=== PATIENT | female | born 1965 | race Caucasian/White ===

== ENCOUNTER 2016-06-19 00:30 | Inpatient (IN) | payer OTHER ==
[2016-06-19] VITALS (9 sets, daily range): BP systolic 120–136; BP diastolic 71–86; PULSE 69–88; RESP 15–19; TEMP 98.4; Ht 167.6 cm; Wt 68.5 kg
[~2016-06-19] VITALS: Ht 167.6 cm; Wt 68.5 kg
[~2016-06-19 00:30] MED LIST: ALBU8.5H3 INH; CALC1TAB79 PO; ERGO500014 PO; ETAN50PE SQ; FOLI-49 PO; HYDR-906 PO; HYDR200T5 PO; IBUP-1542 PO; IBUP800T25 PO; MET25 PO; OMEP20CA16 PO; PRED1TAB2 PO; SULF500T45 PO
[2016-06-19] MEDS ORDERED: ASPIRIN 325 MG TAB PO ONE (01:30)
[2016-06-19 01:38] LABS: ADD SCAN DIFF NO
[2016-06-19 01:39] LABS: BASOPHIL # 0.1 10^3/ul (0.0-0.1); BASOPHILS % 1.1 % (0.0-2.0); EOSINOPHILS # 0.6 10^3/ul (0.0-0.5); EOSINOPHILS % 6.4 % (0.0-7.0); HEMATOCRIT 35.2 % (37.0-47.0); HEMOGLOBIN 11.4 g/dl (12.0-16.0); LYMPHOCYTES # 3.7 10^3/ul (0.8-2.9); LYMPHOCYTES % 42.1 % (15.0-51.0); MEAN CORPUSCULAR HEMOGLOBIN 27.9 pg (29.0-33.0); MEAN CORPUSCULAR HGB CONC 32.4 g/dl (32.0-37.0); MEAN CORPUSCULAR VOLUME 86.3 fl (82.0-101.0); MEAN PLATELET VOLUME 10.3 fl (7.4-10.4); MONOCYTE # 0.8 10^3/ul (0.3-0.9); MONOCYTES % 9.3 % (0.0-11.0); NEUTROPHIL # 3.6 10^3/ul (1.6-7.5); NEUTROPHILS % 40.8 % (39.0-77.0); PLATELET COUNT 257 10^3/UL (140-415); RED BLOOD COUNT 4.08 10^6/ul (4.20-5.40); RED CELL DISTRIBUTION WIDTH 15.7 % (11.5-14.5); WHITE BLOOD COUNT 8.9 10^3/ul (4.8-10.8)
[2016-06-19 01:49] LABS: ALANINE AMINOTRANSFERASE 30 IU/L (13-69); ALBUMIN 4.3 g/dl (3.3-4.9); ALKALINE PHOSPHATASE 90 IU/L (42-121); ANION GAP 12 (8-16); ASPARTATE AMINO TRANSFERASE 27 IU/L (15-46); BLOOD UREA NITROGEN 11 mg/dl (7-20); CALCIUM 9.5 mg/dl (8.4-10.2); CARBON DIOXIDE 25 mmol/L (21-31); CHLORIDE 107 mmol/L (97-110); CREATININE 0.88 mg/dl (0.44-1.00); GLUCOSE 112 mg/dl (70-220); POTASSIUM 3.9 mmol/L (3.5-5.1); SODIUM 140 mmol/L (135-144); TOTAL PROTEIN 8.6 g/dl (6.1-8.1)
[2016-06-19] MEDS ORDERED: OMEG-135 PO (01:57)
[2016-06-19] MEDS ORDERED: FUROSEMIDE 40 MG INJ IV ONE (02:00)
[2016-06-19] MEDS ORDERED: ENALAPRILAT 1.25 MG INJ IV ONE (02:00)
[2016-06-19 02:02] LABS: TROPONIN-I < 0.012 ng/ml (0.00-0.12)
[2016-06-19] MEDS ORDERED: ALBUTEROL 0.5% (NEB) 2.5 MG/0.5 ML AMP INH STA (02:15)
[2016-06-19 02:23] LABS: B-TYPE NATRIURETIC PEPTIDE 279 PG/ML (0-125)
--- NOTE | 2016-06-19 02:23 | ERA ---
ER Documentation Chief Complaint Date/Time DATE: 06/19/16 TIME: 02:16 Chief Complaint chest pain x 2 days on and off HPI 50-year-old woman brought in by family maintenance of pressure-like substernal chest pain intermittent lasting a few minutes 3 days associated with shortness of breath. It seems she had a similar episode last year and a workup was unremarkable including a CTA which was negative for pulmonary embolism. She denies fevers or chills, no calf or leg swelling, no vomiting or diarrhea. ROS All systems reviewed and are negative except as per history of present illness. Medications Home Meds Reported Medications Phillips-3 Fatty Acids/Fish Oil (Fish Oil 1,000 mg Capsule) 1 Each Capsule, 1 EACH PO TID, CAP 06/19/16 Methotrexate* (Methotrexate*) 2.5 Mg Tab, 2.5 MG PO, TAB weekly 01/12/16 Hydroxychloroquine Sulfate* (Plaquenil*) 200 Mg Tab, 200 MG PO DAILY, TAB 01/12/16 Ergocalciferol* (Drisdol* (Vitamin D2)) 50,000 Unit Capsule, 14731 UNIT PO Q7D, CAP twice per week 01/12/16 Folic Acid* (Folic Acid*) 1 Mg Tablet, 1 MG PO DAILY, TAB 01/12/16 Etanercept (Enbrel) 50 Mg/1 Ml Pen.injctr, 50 MG SQ 1-2 times per week 01/12/16 Ibuprofen* (Ibuprofen*) 600 Mg Tablet, 600 MG PO Q6, TAB 01/12/16 Omeprazole* (Omeprazole*) 20 Mg Capsule.dr, 20 MG PO DAILY, #30 CAP 01/12/16 Discontinued Reported Medications Prednisone* (Prednisone*) 1 Mg Tablet, 1 MG PO, TAB 4 tabs daily 01/12/16 Calcium Carbonate/Vitamin D3 (Oysco 500+D Tablet) 1 Each Tablet, 1 EACH PO BID, TAB 01/12/16 Sulfasalazine (Azulfidine) 500 Mg Tab, 1000 MG PO BID, #120 TAB 01/12/16 Discontinued Scripts Albuterol Sulfate* (Proair HFA*) 8.5 Gm Hfa.aer.ad, 2 PUFF INH Q4, #1 INHALER Prov:TALIA SMITH PA-C 01/12/16 Hydrocodone/Acetaminophen ([place] 5-325 Tablet) 1 Each Tablet, 1 TAB PO Q6H Y for PAIN, #20 TAB Prov:KELSIE DUBOSE. DO 10/14/15 Ibuprofen* (Motrin*) 800 Mg Tab, 800 MG PO Q6H Y for PAIN AND OR ELEVATED TEMP, #30 TAB Prov:KELSIE DUBOSE. DO 10/14/15 Allergies Allergies: Coded Allergies: No Known Allergy (Unverified , 06/19/16) PMhx/Soc Gastritis, previous pulmonary effusion and scarring, arthritis History of Surgery: Yes (BILAT KNEE REPLACE) Anesthesia Reaction: No Hx Neurological Disorder: No Hx Respiratory Disorders: No Hx Cardiac Disorders: No Hx Psychiatric Problems: No Hx Miscellaneous Medical Probl: Yes (ARTHRITIS) Hx Alcohol Use: No Hx Substance Use: No Hx Tobacco Use: No Smoking Status: Never smoker FmHx Family History: No diabetes Physical Exam Vitals Vital Signs Date Time Temp Pulse Resp B/P Pulse Ox O2 Delivery O2 Flow Rate FiO2 06/19/16 02:34 70 18 100 21 06/19/16 00:55 98.4 81 20 170/100 100 Room Air 06/19/16 00:36 98.4 56 20 196/92 99 Physical Exam GENERAL: Well-developed, well-nourished, well-hydrated, in no apparent distress , looks nontoxic in appearance HEENT: Moist mucous membranes, pink conjunctiva, no cervical spine tenderness or step-off deformities, no goiter, no jaundice or icterus, extraocular movements intact without pain. No submandibular induration, and no pharyngeal erythema NEURO: Alert and oriented 3, cranial nerves II through XII intact bilaterally, pupils equal round reactive to light, no focal deficits or facial asymmetry, sensation intact distally Strength 5/5 in upper and lower extremities bilaterally CARDIAC: Regular rate and rhythm, no murmurs rubs or gallops LUNGS: Bibasilar crackles, no wheezing or stridor ABDOMEN: Soft nontender, no guarding, no rigidity, no rebound, no psoas sign no obturator sign. Normoactive bowel sounds SKIN: Warm and dry to touch, no abrasions, contusions, or hematomas, no lacerations, no ecchymosis, no target lesions, and without ulcers EXTREMITIES: No clubbing cyanosis or edema, calves are bilaterally symmetrical, no Homans sign, no popliteal cord sign. Distal pulses equal and bilateral PSYCH: Normal affect without agitation or irritability Result Diagram: 06/19/16 0100 06/19/16 0100 Results 24 hrs Laboratory Tests Test 06/19/16 01:00 White Blood Count 8.910^3/ul Red Blood Count 4.0810^6/ul Hemoglobin 11.4g/dl Hematocrit 35.2% Mean Corpuscular Volume 86.3fl Mean Corpuscular Hemoglobin 27.9pg Mean Corpuscular Hemoglobin Concent 32.4g/dl Red Cell Distribution Width 15.7% Platelet Count 38946^3/UL Mean Platelet Volume 10.3fl Neutrophils % 40.8% Lymphocytes % 42.1% Monocytes % 9.3% Eosinophils % 6.4% Basophils % 1.1% Nucleated Red Blood Cells % 0.0/100WBC Neutrophils # 3.610^3/ul Lymphocytes # 3.710^3/ul Monocytes # 0.810^3/ul Eosinophils # 0.610^3/ul Basophils # 0.110^3/ul Nucleated Red Blood Cells # 0.010^3/ul Sodium Level 140mmol/L Potassium Level 3.9mmol/L Chloride Level 107mmol/L Carbon Dioxide Level 25mmol/L Anion Gap 12 Blood Urea Nitrogen 11mg/dl Creatinine 0.88mg/dl Glucose Level 112mg/dl Calcium Level 9.5mg/dl Total Bilirubin 0.0mg/dl Direct Bilirubin 0.00mg/dl Indirect Bilirubin 0.0mg/dl Aspartate Amino Transf (AST/SGOT) 27IU/L Alanine Aminotransferase (ALT/SGPT) 30IU/L Alkaline Phosphatase 90IU/L Troponin I < 0.012ng/ml B-Type Natriuretic Peptide 279PG/ML Total Protein 8.6g/dl Albumin 4.3g/dl Globulin 4.30g/dl Albumin/Globulin Ratio 1.00 Lipase 240U/L Current Medications Medications (Trade) Dose Ordered Sig/Johnna Route PRN Reason Start Time Stop Time Status Last Admin Dose Admin Aspirin (Aspirin) 325 mg ONCE ONCE PO 06/19/16 01:30 06/19/16 01:31 DC 06/19/16 01:39 Enalaprilat (Vasotec Iv) 1.25 mg ONCE ONCE IV 06/19/16 02:00 06/19/16 02:01 DC 06/19/16 01:50 Furosemide (Lasix) 60 mg ONCE ONCE IV 06/19/16 02:00 06/19/16 02:01 DC 06/19/16 01:50 Albuterol (Proventil 0.5% (Neb)) 5 mg ONCE STAT INH 06/19/16 02:15 06/19/16 02:16 DC 06/19/16 02:30 Methylprednisolone Sodium Succinate (Solu-Medrol) 125 mg ONCE ONCE IV 06/19/16 02:30 06/19/16 02:31 DC 06/19/16 02:37 Procedures/MDM IV line was established patient was placed on secretary to board of commissioners rhythm strip revealed a sinus rhythm at about 80 bpm with upright P and T waves and multiple PVCs including atrial-ventricular bigeminy. Patient was afebrile. EKG #1 performed, read by me revealed a normal sinus rhythm at 80 bpm, normal axis, narrow QRS complex, no concerning ST elevations or depressions noted. One view chest x-ray performed, read by me there is atelectatic changes bilaterally and bilateral pulmonary scarring in the left lower lobe infiltrate, no pneumothorax, no end of the diaphragm. Patient was initially hypertensive and given her x-ray findings and complaints of shortness of breath I treated her here with aspirin 325 mg p.o. for cardioprotective measures, enalapril 1.25 mg IV, and furosemide 60 mg IV. She later also received albuterol 5 mg via nebulizer and methylprednisolone 125 mg IV. EKG #2 performed an hour after the first one reveals a normal sinus rhythm at 84 bpm, normal axis, narrow QRS complex, no concerning ST elevations or depressions noted. CBC was unremarkable, electrolytes normal, liver function tests were normal, troponin was normal. BNP low. Patient will be admitted to telemetry setting for continued medical management and possible cardiology pulmonology consultations. Departure Diagnosis: Primary Impression: Chest pain Qualified Code: R07.9 - Chest pain, unspecified type Additional Impressions: Interstitial lung disease Hypertension Qualified Code: I10 - Essential hypertension Condition: LUCILLE Golden MD June 19, 2016 02:23
[2016-06-19] MEDS ORDERED: METHYLPREDNISOLONE 125 MG INJ IV ONE (02:30)
--- NOTE | 2016-06-19 03:15 | RADRPT ---
PROCEDURE: XR Chest. CLINICAL INDICATION: Abdominal pain TECHNIQUE: AP Portable chest. COMPARISON: 01/12/2016 FINDINGS: The cardiomediastinal silhouette is normal. The lungs are clear. The osseous structures are unrema rkable. IMPRESSION: No acute findings. RPTAT: HIKT .Manjit Lemus MD, MD Date Time Electronically viewed and signed by .Manjit Lemus MD, on 06/19/2016 03:15 .T/
[2016-06-19] MEDS ORDERED: ACETAMINOPHEN 325 MG TAB PO PRN (06:00)
[2016-06-19] MEDS ORDERED: NACL 0.9% 3 ML SYG IV SCH (06:00)
[2016-06-19] MEDS ORDERED: PANTOPRAZOLE 40 MG INJ IV SCH (06:00)
[2016-06-19] MEDS ORDERED: ONDANSETRON 4 MG INJ IV PRN (06:00)
--- NOTE | 2016-06-19 06:29 | HP ---
Date/Time of Note Date/Time of Note DATE: 06/19/16 TIME: 06:09 Assessment/Plan VTE Prophylaxis VTE Prophylaxis Intervention: heparin Lines/Catheters IV C[facility]ter Type [facility]from [facility] Peripheral IV Central line still needed: No Urinary Cath still in place: No Assessment/Plan Chief Complaint/Hosp Course This is a 50-year-old female being admitted to telemetry floor for: #1 Chest Pain: Most likely interstitial lung disease exacerbation: Patient is currently afebrile with no consolidation on x-ray afebrile and normal white blood cell count which makes infection less likely. There do appear to be interstitial markings. On previous CT scan there was seemed to be groundglass appearance as well as scarring. I do feel that at this time right now her symptoms are a result of possible interstitial lung disease she may have developed secondary to rheumatoid arthritis iritis and also possibly secondary to Enbrel, methotrexate. At the current time we will treat with DuoNeb's every 4 hours. She already received loading dose of Solu-Medrol in the ED will continue 60 mg daily of prednisone p.o. she has been due for her next dose of methotrexate until Thursday. We will continue her on her Plaquenil right now. Also have pulmonology evaluate the patient for any further recommendations. Her BNP is less than 300 and troponins are negative 1 this appears less likely a cardiac etiology however we will trend the troponin. EKG EKG was sinus rhythm 80 bpm with no overt ST or T-wave abnormalities noted. #2 rheumatoid arthritis: Continue Plaquenil and folic acid. Confirm Enbrel dosage and frequency. Patient is due for her methotrexate on Thursday as part of her once weekly treatment. We will add Toradol IV for pain management. She also is getting prednisone for interstitial lung disease this may also help with the pain. Patient does have an appointment this coming Thursday with her mold burner. I have advised her to discuss with them regarding if some of these pulmonary issues right now could be a result of her rheumatoid arthritis medications. #3 DVT and GI prophylaxis: Heparin subcu, Protonix IV Problems: HPI/ROS Admit Date/Time Admit Date/Time 06/19/2016 Hx of Present Illness 50-year-old woman brought in by family maintenance of pressure-like substernal chest pain intermittent lasting a few minutes 3 days associated with shortness of breath. Patient denies any diaphoresis or lower extremity swelling. She did have a similar episode before in 2016 for which she came into the ED and on CT was found to have patchy groundglass appearance along with some lung scarring. There was no sign of any PE on the study. She does follow with a mold burner in approximately 6 weeks ago switched to methotrexate injections of previous oral formulation. She also is on Enbrel and Plaquenil. She denies any fevers at this time. Allergies: NKDA Medications: See MAR ROS Const: Denies any fevers or chills. Eyes : No pain discharge or redness or change in visual acuity ENT: No pain, sore throat, congestion, congestion, dysphagia or discharge Respiratory: Chest tightness, shortness of breath as stated above in the HPI Cardiovascular: No chest pain, palpitation, PND, or edema GI : no change in appetite, abdominal pain, nausea, vomiting, diarrhea, constipation, or change in the color his stool Genitourinary: No dysuria, hematuria, flank pain , discharge or CVA tenderness Musculoskeletal: Stiffness in her joints at times Skin: No rash, bruising or hives Neuro: No headache, dizziness, syncope, seizure, focal weakness Endocrine: No polyuria, polydipsia, temperature intolerance Psych: No hallucination, depression, anxiety or suicidal ideation PMH/Family/Social Past Medical History Rheumatoid arthritis Past Surgical History Bilateral knee replacement Family History Significant Family History: diabetes (Mom) Social History Alcohol Use: none Smoking Status: Never smoker Drug Use: none Exam/Review of Systems Vital Signs Vitals Vital Signs Date Time Temp Pulse Resp B/P Pulse Ox O2 Delivery O2 Flow Rate FiO2 06/19/16 04:30 98.4 73 20 105/68 99 Room Air 06/19/16 02:34 21 Exam Exam General: Patient is well-developed female in mild distress The patient is alert oriented -3 HEENT: Atraumatic, normocephalic. The pupils are equal, round and reactive. Extraocular motor are intact Neck: Supple with full range of motion. No rigidity or meningismus Chest: Nontender Lungs: Clear to auscultation bilaterally no crackles rales or wheezing Heart: Normal S1-S2, Regular rhythm and rate. No murmur, S3, or S4 Abdomen: Soft , nontender, nondistended , bowel sounds are present. No guarding no rebound tenderness , No masses or organomegaly. No costovertebral temporal angle mass Extremities: Normal to inspection, no edema no cyanosis Neurologic: Normal mental status, speech normal, cranial nerves II through XII are intact, motor and sensory are intact, no focal weakness Additional Comments EKG performed, read by me revealed a normal sinus rhythm at 80 bpm, normal axis, narrow QRS complex, no concerning ST elevations or depressions noted. Chest x-ray Reviewed by me appears to have interstitial lung markings. Previous CT scan of the chest from 2016: Focal calcification within the proximal left anterior descending coronary artery. Mediastinal and hilar lymphadenopathy. Nonspecific diffuse patchy ground glass appearance throughout the lungs. Mild right upper lobe scarring. Subpleural nodular density within the superior segment of the left lower lobe measuring 12 x 8 x 9 mm. Labs Result Diagram: 06/19/169906/19/1699 MARLENA MARINO June 19, 2016 06:24
[2016-06-19] MEDS ORDERED: KETOROLAC 15 MG INJ IV SCH ×2 (07:00→11:00)
[2016-06-19] MEDS ORDERED: ERGOCALCIFEROL 50000 UNIT XX SCH (08:00)
[2016-06-19] MEDS ORDERED: [UNRECOGNIZED DRUG - OTHER] XX SCH (08:00)
[2016-06-19] MEDS: FOLIC ACID 1 MG TAB PO SCH (08:55)
[2016-06-19] MEDS: HEPARIN 5,000 UNIT/0.5 ML VIAL SC SCH ×3 (08:56→22:55)
[2016-06-19] MEDS: HYDROXYCHLOROQUINE 200 MG TAB PO SCH (11:07)
--- NOTE | 2016-06-19 11:25 | CONS ---
Date/Time of Note Date/Time of Note DATE: 06/19/16 TIME: 11:21 Assessment/Plan Assessment/Plan Additional Assessment/Plan Chest x-ray was reviewed from yesterday which is showing mild interstitial prominence more pronounced in overdose. Assessment recommendations; 1. Patient admitted for chest pain which appears to be musculoskeletal in etiology possibly related to underlying rheumatoid arthritis. 2. Interstitial lung disease, unlikely to be methotrexate induced. Continue current treatment. A cardiac workup is recommended Consultation Date/Type/Reason Admit Date/Time 06/19/2016 Date of Consultation: June 19, 2016 Type of Consultation: Pulmonary Reason for Consultation Pulmonary consultation requested for evaluation of chest pain. History presenting illness; Patient is a 50-year-old [place] lady who came into the emergency room yesterday with complaints of sharp- dull chest pain involving the sternum as well as left chest, according to the patient the symptoms are increased by certain movements as well as deep breathing. Patient denies any abdominal pain nausea vomiting fever chills wheezing sputum production. Patient had similar episode several months ago and was evaluated in ER and will discharge home. Over the last couple of hours the pain has improved. Next Past medical history; 1. Patient with history of rheumatoid arthritis, maintained on Plaquenil, steroids and methotrexate. 2. History of bilateral knee depression. 3. No history of any coronary artery disease. Medications; were reviewed. Allergies; are none. Next Family history; patient is he has supportive family no history of any connective tissue diseases in the family. Occupational history; patient has been a housewife. Review of systems; denies any headache, visual changes. Any sore throat. Any angina, wheezing, patient does complain of shortness of breath upon exertion for the last several months. Denies any sputum production. Any hemoptysis. Any weight loss. Any abdominal pain, nausea vomiting, any melena, hematochezia. Denies any edema. Denies any skin changes. General exam; middle-aged woman, awake alert currently in no distress. Social History Alcohol Use: none Smoking Status: Never smoker Drug Use: none Exam/Review of Systems Vital Signs Vitals Vital Signs Date Time Temp Pulse Resp B/P Pulse Ox O2 Delivery O2 Flow Rate FiO2 06/19/16 08:27 69 06/19/16 08:24 98.2 19 124/75 97 06/19/16 06:37 Room Air 06/19/16 02:34 21 Exam HEENT examination; supple neck, no JVD. No lymphadenopathy. Midline trachea. No thyromegaly. Pharynx clear. Patient has good dentition. Pupils are midsize reactive to light. Chest examination; diminished breath on lung bases. Upper lobes are clear to auscultation. S1-S2 audible, no murmurs. Regular rhythm. There is reproducible chest wall tenderness involving the lower sternum as well as left lower rib cage. Abdomen examination; soft, nondistended. Bowel sounds are audible. Extremity exam is; no peripheral edema. Bilateral knee scars are present. No peripheral edema. [employer] examination; no focal deficit. Results Result Diagram: 06/19/16 0100 06/19/16 0100 Results 24 hrs Laboratory Tests Test 06/19/16 01:00 White Blood Count 8.9 Red Blood Count 4.08 L Hemoglobin 11.4 L Hematocrit 35.2 L Mean Corpuscular Volume 86.3 Mean Corpuscular Hemoglobin 27.9 L Mean Corpuscular Hemoglobin Concent 32.4 Red Cell Distribution Width 15.7 H Platelet Count 257 Mean Platelet Volume 10.3 Neutrophils % 40.8 Lymphocytes % 42.1 Monocytes % 9.3 Eosinophils % 6.4 Basophils % 1.1 Nucleated Red Blood Cells % 0.0 Neutrophils # 3.6 Lymphocytes # 3.7 H Monocytes # 0.8 Eosinophils # 0.6 H Basophils # 0.1 Nucleated Red Blood Cells # 0.0 Sodium Level 140 Potassium Level 3.9 Chloride Level 107 Carbon Dioxide Level 25 Anion Gap 12 Blood Urea Nitrogen 11 Creatinine 0.88 Glucose Level 112 Calcium Level 9.5 Total Bilirubin 0.0 L Direct Bilirubin 0.00 Indirect Bilirubin 0.0 Aspartate Amino Transf (AST/SGOT) 27 Alanine Aminotransferase (ALT/SGPT) 30 Alkaline Phosphatase 90 Troponin I < 0.012 B-Type Natriuretic Peptide 279 H Total Protein 8.6 H Albumin 4.3 Globulin 4.30 H Albumin/Globulin Ratio 1.00 Lipase 240 Medications Medications Current Medications Ergocalciferol (Drisdol) 50,000 unit Sa@09 PO ; Start 06/21/16 at 09:00 Folic Acid (Folic Acid) 1 mg DAILY PO Last administered on 06/19/16t 08:55; Admin Dose 1 MG; Start 06/19/16 at 09:00 Hydroxychloroquine Sulfate (Plaquenil) 200 mg DAILY PO ; Start 06/19/16 at 09:00 Ondansetron HCl (Zofran Inj) 4 mg Q6H PRN IV NAUSEA AND/OR VOMITING; Start 06/19 at 06:00 Acetaminophen (Tylenol Tab) 650 mg Q6H PRN PO PAIN LEVEL 1-3 OR FEVER; Start at 06:00 Pantoprazole (Protonix Iv) 40 mg DAILY@06 IV Last administered on 06/19/16 08: 55; Admin Dose 40 MG; Start 06/19/16 at 06:00 Heparin Sodium (Porcine) (Heparin (5000 Units/0.5 ml)) 5,000 unit Q8 SC Last administered on 06/19/16 08:56; Admin Dose 5,000 UNIT; Start 06/19/16 at 06:00 Prednisone (Prednisone) 60 mg DAILY PO ; Start 06/20/16 at 09:00 Ketorolac Tromethamine (Toradol) 15 mg Q6H IV ; Start 06/19/16 at 11:00; Stop 06/22/16 at 10:59 TABATHA BETTENCOURT June 19, 2016 11:25
[2016-06-19] MEDS: KETOROLAC 30 MG INJ IV SCH ×3 (11:48→22:43)
[2016-06-19] MEDS ORDERED: hydrALAzine 20 MG INJ IV PRN (15:30)
[2016-06-19] MEDS: ALBUTEROL/IPRATROPIUM (NEB) 3 ML AMP HHN SCH (22:12)
[2016-06-20] VITALS (8 sets, daily range): BP systolic 115–138; BP diastolic 69–75; PULSE 57–72; RESP 15–18
[2016-06-20] MEDS: KETOROLAC 30 MG INJ IV SCH ×2 (05:46→11:30)
[2016-06-20] MEDS: HEPARIN 5,000 UNIT/0.5 ML VIAL SC SCH ×2 (05:49→14:00)
[2016-06-20] MEDS ORDERED: PANTOPRAZOLE (EC) 40 MG TAB PO SCH (06:00)
[2016-06-20 06:32] LABS: ADD SCAN DIFF NO
[2016-06-20 06:43] LABS: BASOPHILS % 0.3 % (0.0-2.0); EOSINOPHILS % 0.1 % (0.0-7.0); HEMATOCRIT 32.9 % (37.0-47.0); HEMOGLOBIN 10.5 g/dl (12.0-16.0); LYMPHOCYTES # 3.9 10^3/ul (0.8-2.9); LYMPHOCYTES % 26.8 % (15.0-51.0); MEAN CORPUSCULAR HEMOGLOBIN 27.3 pg (29.0-33.0); MEAN CORPUSCULAR HGB CONC 31.9 g/dl (32.0-37.0); MEAN CORPUSCULAR VOLUME 85.5 fl (82.0-101.0); MEAN PLATELET VOLUME 10.9 fl (7.4-10.4); MONOCYTE # 1.5 10^3/ul (0.3-0.9); NEUTROPHIL # 9.1 10^3/ul (1.6-7.5); NEUTROPHILS % 62.5 % (39.0-77.0); PLATELET COUNT 250 10^3/UL (140-415); RED BLOOD COUNT 3.85 10^6/ul (4.20-5.40); RED CELL DISTRIBUTION WIDTH 16.5 % (11.5-14.5); WHITE BLOOD COUNT 14.5 10^3/ul (4.8-10.8)
[2016-06-20 07:08] LABS: CHOL/HDL RATIO 3.6 RATIO; CHOLESTEROL 211 mg/dl (100-200); HDL CHOLESTEROL 58 mg/dl (37-92); MAGNESIUM 2.2 mg/dl (1.7-2.5); PHOSPHORUS 3.2 mg/dl (2.5-4.9); TRIGLYCERIDES 104 mg/dl (0-149)
[2016-06-20 07:15] LABS: TROPONIN-I < 0.012 ng/ml (0.00-0.12)
[2016-06-20 07:24] LABS: ALBUMIN 3.8 g/dl (3.3-4.9); POTASSIUM 3.8 mmol/L (3.5-5.1)
[2016-06-20 07:27] LABS: ALBUMIN/GLOBULIN RATIO 1.08; BILIRUBIN,INDIRECT 0.1 mg/dl (0-1.1); BILIRUBIN,TOTAL 0.1 mg/dl (0.2-1.3); CALCIUM 9.1 mg/dl (8.4-10.2); CREATININE 0.55 mg/dl (0.44-1.00); TOTAL PROTEIN 7.3 g/dl (6.1-8.1)
[2016-06-20] MEDS ORDERED: predniSONE 20 MG TAB PO SCH (09:00)
[2016-06-20] MEDS: ALBUTEROL/IPRATROPIUM (NEB) 3 ML AMP HHN SCH ×2 (09:05→12:47)
[2016-06-20] MEDS: FOLIC ACID 1 MG TAB PO SCH (09:21)
[2016-06-20] MEDS: HYDROXYCHLOROQUINE 200 MG TAB PO SCH (09:32)
--- NOTE | 2016-06-20 12:47 | RADRPT ---
Echocardiogram Report Patient Name: KELSEA KOCH Gender: Female Date: 1965 Study Date: 20-Jun-2016 Phlebotomist Supervisor/Instructor: RAOUL RUST Location: [id number] Ref. Physician: PACHECO GONZALEZ Quality: Adequate Procedures: Transthoracic echocardiogram with complete 2D, M-Mode, and doppler examination. Indications: Chest Pain. 2D/M Mode Doppler Measurement Value Normal Ranges Measurement Value Normal Ranges AoR Diam MM 1.8 cm AV Peak Nadir 1.0 m/sec LA/Ao MM 2.2 AV Peak PG 3.8 mmHg LA Dimen MM 3.9 cm LVOT Peak Nadir 0.7 m/sec LVIDd 2D 5.5 3.5 - 5.6 cm LVOT Peak PG 2.1 mmHg LVIDs 2D 3.7 2.1 - 4.1 cm MV E Peak Nadir 1.1 m/sec LVPWd 2D 0.9 0.6 - 1.1 cm MV A Peak Nadir 0.7 m/sec IVSd 2D 0.8 0.6 - 1.1 cm MV E/A 1.4 AoR Diam 2D 2.3 2.0 - 3.7 cm MV Decel Time 215 msec EDV 2D 148.7 cm3 MV Decel [place] 5 ESV 2D 49.9 cm3 MV E/A 1.4 LA Dimen 2D 4.2 2.3 - 4.0 cm Findings Left Ventricle: Normal left ventricular systolic function. Normal left ventricular wall thickness. Mild enlargement of left ventricle cavity. Ejection fraction is visually estimated at 55 %. Right Ventricle: Normal right ventricular size. Normal right ventricular systolic function. Left Atrium: There is mild enlargement of left atrium. LA Dimension4.20 cm. Right Atrium: The right atrium is normal in size. Mitral Valve: Mild mitral leaflet calcification. Mild mitral annular calcification. Trace mitral regurgitation. Aortic Valve: Normal appearance of the aortic valve. No significant aortic stenosis or insufficiency. Tricuspid Valve: Normal appearance and function of the tricuspid valve with trace physiologic regurgitation. Pulmonic Valve: Pulmonic valve not well visualized. Pericardium: Normal pericardium with no significant pericardial effusion. Aorta: Normal aortic root. IVC: Normal size and normal respiratory collapse consistent with normal right atrial pressure. Conclusions Normal left ventricular systolic function. Normal left ventricular wall thickness. Mild enlargement of left ventricle cavity. Ejection fraction is visually estimated at 55 %. Normal right ventricular size. Normal right ventricular systolic function. There is mild enlargement of left atrium. LA Dimension4.20 cm. The right atrium is normal in size. No significant valvular stenosis or regurgitation seen. Normal pericardium with no significant pericardial effusion. Electronically Signed By: Jimmy Oropeza 20-Jun-2016 12:46:53 -0700 Patient Name: KELSEA KOCH Study Date: 20-Jun-2016 [id number]
--- NOTE | 2016-06-20 12:49 | PN ---
Date/Time of Note Date/Time of Note DATE: 06/20/16 TIME: 12:31 Assessment/Plan VTE Prophylaxis VTE Prophylaxis Intervention: heparin Lines/Catheters IV Catheter Type (from Nrs): [place] Lock Urinary Cath still in place: No Assessment/Plan Assessment/Plan 1. Chest Pain: resolved, likely musculoskeletal, no pulmonary hypertension on echo, no pericardial effusion 3 Rheumatoid arthritis: Continue Plaquenil and folic acid. Confirm Enbrel dosage and frequency. methotrexate on Fridays 4. DVT prophylaxis: Heparin Subjective 24 Hr Interval Summary Free Text/Dictation no chest pain Exam/Review of Systems Vital Signs Vitals Vital Signs Date Time Temp Pulse Resp B/P Pulse Ox O2 Delivery O2 Flow Rate FiO2 06/20/16 12:13 98.5 54 18 138/75 96 06/20/16 09:13 21 06/19/16 06:37 Room Air Intake and Output 06/19/16 06/19/16 06/20/16 15:00 23:00 07:00 Intake Total 640 ml Output Total 2 ml Balance 638 ml Results Result Diagram: 06/20/16 0540 06/20/16 0540 Results 24 hrs Laboratory Tests Test 06/19/16 18:05 06/20/16 05:40 Troponin I < 0.012 < 0.012 White Blood Count 14.5 #H Red Blood Count 3.85 L Hemoglobin 10.5 L Hematocrit 32.9 L Mean Corpuscular Volume 85.5 Mean Corpuscular Hemoglobin 27.3 L Mean Corpuscular Hemoglobin Concent 31.9 L Red Cell Distribution Width 16.5 H Platelet Count 250 Mean Platelet Volume 10.9 H Neutrophils % 62.5 Lymphocytes % 26.8 Monocytes % 10.0 Eosinophils % 0.1 Basophils % 0.3 Nucleated Red Blood Cells % 0.0 Neutrophils # 9.1 H Lymphocytes # 3.9 H Monocytes # 1.5 H Eosinophils # 0.0 Basophils # 0.0 Nucleated Red Blood Cells # 0.0 Sodium Level 142 Potassium Level 3.8 Chloride Level 108 Carbon Dioxide Level 24 Anion Gap 14 Blood Urea Nitrogen 20 Creatinine 0.55 Glucose Level 154 Hemoglobin A1c 6.1 H Calcium Level 9.1 Phosphorus Level 3.2 Magnesium Level 2.2 Total Bilirubin 0.1 L Direct Bilirubin 0.00 Indirect Bilirubin 0.1 Aspartate Amino Transf (AST/SGOT) 16 Alanine Aminotransferase (ALT/SGPT) 28 Alkaline Phosphatase 73 Total Protein 7.3 # Albumin 3.8 Globulin 3.50 H Albumin/Globulin Ratio 1.08 Triglycerides Level 104 Cholesterol Level 211 H LDL Cholesterol, Calculated 132 HDL Cholesterol 58 Cholesterol/HDL Ratio 3.6 Medications Medications Current Medications Ergocalciferol (Drisdol) 50,000 unit Sa@09 PO ; Start 06/21/16 at 09:00 Folic Acid (Folic Acid) 1 mg DAILY PO Last administered on 06/20/16 09:21; Admin Dose 1 MG; Start 06/19/16 at 09:00 Hydroxychloroquine Sulfate (Plaquenil) 200 mg DAILY PO Last administered on 06/20 09:32; Admin Dose 200 MG; Start 06/19/16 at 09:00 Ondansetron HCl (Zofran Inj) 4 mg Q6H PRN IV NAUSEA AND/OR VOMITING; Start 06/19 at 06:00 Acetaminophen (Tylenol Tab) 650 mg Q6H PRN PO PAIN LEVEL 1-3 OR FEVER Last administered on 06/19/16 16:04; Admin Dose 650 MG; Start 06/19/16 at 06:00 Heparin Sodium (Porcine) (Heparin (5000 Units/0.5 ml)) 5,000 unit Q8 SC Last administered on 06/19/16 22:55; Admin Dose 5,000 UNIT; Start 06/19/16 at 06:00 Prednisone (Prednisone) 60 mg DAILY PO Last administered on 06/20/16 09:21; Admin Dose 60 MG; Start 06/20/16 at 09:00 Ketorolac Tromethamine (Toradol) 15 mg Q6H IV Last administered on 06/20/16 05: 46; Admin Dose 15 MG; Start 06/19/16 at 11:30; Stop 06/22/16 at 10:59 Hydralazine HCl (Apresoline) 10 mg Q6H PRN IV SBP>160; Start 06/19/16 at 15:30 Pantoprazole (Protonix Tab) 40 mg DAILY@06 PO Last administered on 06/20/16 05: 44; Admin Dose 40 MG; Start 06/20/16 at 06:00 DALIA BASS MD June 20, 2016 12:42
--- NOTE | 2016-06-20 13:15 | DS ---
Date/Time of Note Date/Time of Note DATE: 06/20/16 TIME: 12:52 Discharge Summary Admission/Discharge Info Admit Date/Time June 19, 2016 at 02:33 Discharge Date/Time Final Diagnosis 1. Chest Pain: resolved, likely musculoskeletal, no pulmonary hypertension on echo, no pericardial effusion 2. Pulmonary fibrosis on CT scan on 01/12/2016, patient will check with video production coordinator/supervisor core drilling about further treatment 3 Rheumatoid arthritis: Continue Plaquenil and folic acid. Confirm Enbrel dosage and frequency. methotrexate on Fridays Patient Condition: Stable Hx of Present Illness 50-year-old woman brought in by family maintenance of pressure-like substernal chest pain intermittent lasting a few minutes 3 days associated with shortness of breath. Patient denies any diaphoresis or lower extremity swelling. She did have a similar episode before in 2015 for which she came into the ED and on CT was found to have patchy groundglass appearance along with some lung scarring. There was no sign of any PE on the study. She does follow with a supervisor core drilling in approximately 6 weeks ago switched to methotrexate injections of previous oral formulation. She also is on Enbrel and Plaquenil. She denies any fevers at this time. Hospital Course The chest pain is likely musculoskeletal. Interstitial lung disease only causes pain when it involve the pleuritis or severe pulmonary hypertension that may give angina like chest pain. No evidence of pleuritis no significant pulmonary hypertension on echocardiography. The CT scan done on 01/12/2016 indicated diffuse ground glass changes in lungs, indicates interstital lung disease/pulmonary fibrosis. It is likely part of rheumatoid arthritis. I am not sure if there is still active inflammatory changes. I had a long talk with the patient and her son/. I will have her follow up with her supervisor core drilling and video production coordinator to make the decision whether start her on steroid. She is instructed to follow up with pul monlogist and supervisor core drilling as soon as possible. I will make a copy of her CT scan of lung for her. Home Meds Reported Medications [place]-3 Fatty Acids/Fish Oil (Fish Oil 1,000 mg Capsule) 1 Each Capsule, 1 EACH PO TID, CAP 06/19/16 Methotrexate* (Methotrexate*) 2.5 Mg Tab, 2.5 MG PO, TAB weekly 01/12/16 Hydroxychloroquine Sulfate* (Plaquenil*) 200 Mg Tab, 200 MG PO DAILY, TAB 01/12/16 Ergocalciferol* (Drisdol* (Vitamin D2)) 50,000 Unit Capsule, 52868 UNIT PO Q7D, CAP twice per week 01/12/16 Folic Acid* (Folic Acid*) 1 Mg Tablet, 1 MG PO DAILY, TAB 01/12/16 Etanercept (Enbrel) 50 Mg/1 Ml Pen.injctr, 50 MG SQ 1-2 times per week 01/12/16 Ibuprofen* (Ibuprofen*) 600 Mg Tablet, 600 MG PO Q6, TAB 01/12/16 Omeprazole* (Omeprazole*) 20 Mg Capsule.dr, 20 MG PO DAILY, #30 CAP 01/12/16 Discontinued Reported Medications Prednisone* (Prednisone*) 1 Mg Tablet, 1 MG PO, TAB 4 tabs daily 01/12/16 Calcium Carbonate/Vitamin D3 ([place] 500+D Tablet) 1 Each Tablet, 1 EACH PO BID, TAB 01/12/16 Sulfasalazine (Azulfidine) 500 Mg Tab, 1000 MG PO BID, #120 TAB 01/12/16 Discontinued Scripts Albuterol Sulfate* (Proair HFA*) 8.5 Gm Hfa.aer.ad, 2 PUFF INH Q4, #1 INHALER Prov:TALIA SMITH PA-C 01/12/16 Hydrocodone/Acetaminophen ([place] 5-325 Tablet) 1 Each Tablet, 1 TAB PO Q6H Y for PAIN, #20 TAB Prov:KELSIE DUBOSE DO 10/14/15 Ibuprofen* (Motrin*) 800 Mg Tab, 800 MG PO Q6H Y for PAIN AND OR ELEVATED TEMP, #30 TAB Prov:KELSIE DUBOSE DO 10/14/15 Follow-up Plan pulmonology and rheumatology as soon as possible Pending Labs Laboratory Tests Test 06/19/16 18:05 06/20/16 05:40 Troponin I < 0.012ng/ml (0.00-0.12) < 0.012ng/ml (0.00-0.12) White Blood Count 14.510^3/ul (4.8-10.8) Red Blood Count 3.8510^6/ul (4.20-5.40) Hemoglobin 10.5g/dl (12.0-16.0) Hematocrit 32.9% (37.0-47.0) Mean Corpuscular Volume 85.5fl (82.0-101.0) Mean Corpuscular Hemoglobin 27.3pg (29.0-33.0) Mean Corpuscular Hemoglobin Concent 31.9g/dl (32.0-37.0) Red Cell Distribution Width 16.5% (11.5-14.5) Platelet Count 99782^3/UL (140-415) Mean Platelet Volume 10.9fl (7.4-10.4) Neutrophils % 62.5% (39.0-77.0) Lymphocytes % 26.8% (15.0-51.0) Monocytes % 10.0% (0.0-11.0) Eosinophils % 0.1% (0.0-7.0) Basophils % 0.3% (0.0-2.0) Nucleated Red Blood Cells % 0.0/100WBC (0.0-0.0) Neutrophils # 9.110^3/ul (1.6-7.5) Lymphocytes # 3.910^3/ul (0.8-2.9) Monocytes # 1.510^3/ul (0.3-0.9) Eosinophils # 0.010^3/ul (0.0-0.5) Basophils # 0.010^3/ul (0.0-0.1) Nucleated Red Blood Cells # 0.010^3/ul (0.0-0.0) Sodium Level 142mmol/L (135-144) Potassium Level 3.8mmol/L (3.5-5.1) Chloride Level 108mmol/L (97-110) Carbon Dioxide Level 24mmol/L (21-31) Anion Gap 14 (8-16) Blood Urea Nitrogen 20mg/dl (7-20) Creatinine 0.55mg/dl (0.44-1.00) Glucose Level 154mg/dl (70-220) Hemoglobin A1c 6.1% (0-5.9) Calcium Level 9.1mg/dl (8.4-10.2) Phosphorus Level 3.2mg/dl (2.5-4.9) Magnesium Level 2.2mg/dl (1.7-2.5) Total Bilirubin 0.1mg/dl (0.2-1.3) Direct Bilirubin 0.00mg/dl (0.00-0.20) Indirect Bilirubin 0.1mg/dl (0-1.1) Aspartate Amino Transf (AST/SGOT) 16IU/L (15-46) Alanine Aminotransferase (ALT/SGPT) 28IU/L (13-69) Alkaline Phosphatase 73IU/L (42-121) Total Protein 7.3g/dl (6.1-8.1) Albumin 3.8g/dl (3.3-4.9) Globulin 3.50g/dl (1.3-3.2) Albumin/Globulin Ratio 1.08 Triglycerides Level 104mg/dl (0-149) Cholesterol Level 211mg/dl (100-200) LDL Cholesterol, Calculated 132mg/dl HDL Cholesterol 58mg/dl (37-92) Cholesterol/HDL Ratio 3.6RATIO DALIA BASS MD June 20, 2016 13:02
[2016-06-21] MEDS ORDERED: ERGOCALCIFEROL 50,000 UNIT CAP PO SCH (09:00)
== END 2016-06-20 14:39 | disposition home or self-care (01) | DRG 313 ==
LOC: E/R 00:30 → MS4 02:33
PROVIDERS: ADMIT Family Medicine; ATTEND Family Medicine
DX: R07.89 Other chest pain (principal); J84.10 Pulmonary fibrosis, unspecified; M06.9 Rheumatoid arthritis, unspecified; Z79.52 Long term (current) use of systemic steroids
CPT/HCPCS: 36415; 71010; 80053; 80061; 83036; 83690; 83735; 83880; 84100; 84484; 85025; 93005; 93306; 94664; 96374; 96375; C9113; J1644; J1885; J1940; J2930; J7512

== ENCOUNTER 2017-02-16 06:51 | Emergency (ER) | END 2017-02-16 11:43 | disposition home or self-care (01) ==

== ENCOUNTER 2018-01-27 13:26 | Inpatient (IN) | END 2018-01-29 10:42 | disposition home or self-care (01) | DRG 605 ==

== ENCOUNTER 2018-02-16 22:15 | Emergency (ER) | payer OTHER ==
[~2018-02-16] VITALS: Ht 162.6 cm; Wt 65.5 kg
[~2018-02-16 22:15] MED LIST changes: -ALBU8.5H3 INH; +AMLO5TAB4 PO; -CALC1TAB79 PO; +ERGO500013 PO; -ERGO500014 PO; +FLOV220 INHALATION; -FOLI-49 PO; +GUAI5SYR2 PO; +HYDR-4011 PO; -HYDR-906 PO; +HYDR12.58 PO; -HYDR200T5 PO; -IBUP800T25 PO; +LEFL20TA18 PO; -MET25 PO; +MYCO500T3 PO; +OMEG-135 PO; -PRED1TAB2 PO; -SULF500T45 PO
[2018-02-16 22:22] VITALS: Ht 162.6 cm; Wt 65.5 kg
[2018-02-16] MEDS ORDERED: ACET500C5 PO (22:40)
[2018-02-16] MEDS ORDERED: AMOX500T PO (22:40)
[2018-02-16] MEDS ORDERED: ALBU8.5H8 INH (22:43)
--- NOTE | 2018-02-16 22:46 | ERD ---
ER Documentation Chief Complaint Chief Complaint ST, cough x3 days. no fever/CP/other symptoms HPI 52-year-old female presents here to emergency department for complaints of sore throat for 3 days, does making her cough because of discomfort, throbbing pain, 8/10 scale, not better or worse with anything, denies any fever or chills. Patient also has history of asthma and ran out of her inhaler and wants a refill of it. ROS All systems reviewed and are negative except as per history of present illness. Medications Home Meds Active Scripts Albuterol Sulfate* (Proair HFA*) 8.5 Gm Hfa.aer.ad, 2 PUFF INH Q4H PRN for WHEEZING AND SOB, #1 INHALER Prov:RENATA LEWIS SENIOR SOURCING MANAGER 02/16/18 Acetaminophen* (Tylophen*) 500 Mg Capsule, 1 CAP PO Q6H PRN for PAIN AND OR ELEVATED TEMP, #20 CAP Prov:RENATA LEWIS SENIOR SOURCING MANAGER 02/16/18 Amoxicillin Trihydrate (Amoxicillin) 500 Mg Tablet, 500 MG PO Q8, #30 TAB Prov:RENATA LEWIS SENIOR SOURCING MANAGER 02/16/18 Guaifenesin-Dextromethorphan* (Robitussin* DM) 100MG/10MG/5ML Syrup, 10 ML PO Q4H PRN for COUGH, #120 ML Prov:JOSE F MCKEON NP 01/29/18 Hydrocodone/Acetaminophen ([place] 5-325 Tablet) 1 Each Tablet, 1 EACH PO Q6 for pain, #15 TAB Prov:JOSE F MCKEON V. SENIOR SOURCING MANAGER 01/29/18 Reported Medications Etanercept (Enbrel) 50 Mg/1 Ml Pen.injctr, 50 MG SQ weekly 01/27/18 Ibuprofen* (Ibuprofen*) 600 Mg Tablet, 600 MG PO Q6H PRN for PAIN, TAB 01/27/18 [place]-3 Fatty Acids/Fish Oil (Fish Oil 1,000 mg Capsule) 1 Each Capsule, 1 EACH PO TID, CAP 01/27/18 Omeprazole* (Omeprazole*) 20 Mg Capsule.dr, 20 MG PO DAILY, #30 CAP 01/27/18 Amlodipine Besylate* (Norvasc*) 5 Mg Tablet, 5 MG PO DAILY, TAB 01/27/18 Leflunomide* (Leflunomide*) 20 Mg Tablet, 20 MG PO DAILY, #30 TAB 01/27/18 Ergocalciferol (Vitamin D2) (VITAMIN D2) 50,000 Unit Capsule, 32516 UNIT PO EVERY THURSDAY, CAP 01/27/18 Mycophenolate Mofetil* (Mycophenolate Mofetil*) 500 Mg Tablet, 1500 MG PO BID, TAB 01/27/18 Fluticasone Propionate* (Flovent* HFA 220) 12 Gm Inha, 1 PUFF INHALATION BID, #1 INHALER 01/27/18 Hydrochlorothiazide* (Hydrochlorothiazide*) 12.5 Mg Tablet, 12.5 MG PO DAILY, #30 TAB 01/27/18 Allergies Allergies: Coded Allergies: No Known Allergy (Unverified , 01/27/18) PMhx/Soc History of Surgery: Yes Anesthesia Reaction: No Hx Neurological Disorder: No Hx Respiratory Disorders: Yes (pulmonary fibrosis) Hx Cardiac Disorders: Yes (HTN) Hx Psychiatric Problems: No Hx Miscellaneous Medical Probl: Yes (anemia) Hx Alcohol Use: No Hx Substance Use: No Hx Tobacco Use: No Physical Exam Vitals Vital Signs Date Temp Pulse Resp B/P (MAP) Pulse Ox O2 O2 Flow FiO2 Time Delivery Rate 02/16/18 97.8 85 16 183/96 97 22:22 (125) Physical Exam GENERAL: The patient is well developed and appropriate for usual state of health, in no apparent distress. HEENT: Atraumatic. Ears: Normal tympanic membrane, no erythema or bulging. No ear canal swelling. No ear discharge. Nose: normal nasal turbinates, no erythema or swelling. Normal nasal discharge. Throat: oropharynx erythematous with tonsillar swelling and tonsillar exudates noted. No lymphadenopathy. CHEST: Clear to auscultation bilaterally. There are no rales, wheezes or rhonchi. HEART: Regular rate and rhythm. No murmurs, clicks, rubs or gallops. No S3 or S4. ABDOMEN: Soft, nontender and nondistended. Good bowel sounds. No rebound or guarding. No gross peritonitis. No gross organomegaly or masses. No Bautista sign or McBurney point tenderness. BACK: No midline or flank tenderness. EXTREMITIES: Equal pulses bilaterally. There is no peripheral clubbing, cyanosis or edema. No focal swelling or erythema. Full range of motion. Grossly neurovascularly intact. NEURO: Alert and oriented. Cranial nerves 2-12 intact. Motor strength in all 4 extremities with 5/5 strength. Sensation grossly intact. Normal speech and gait. SKIN: There is no apparent rash or petechia. The skin is warm and dry. HEMATOLOGIC AND LYMPHATIC: There is no evidence of excessive bruising or lymphedema. No gross cervical, axillary, or inguinal lymphadenopathy. Procedures/MDM Medical decision making: Patient symptoms is likely consistent with acute b acterial pharyngitis, most likely strep throat. Low suspicion for peritonsillar abscess, mononucleosis, no symptoms of epiglottitis, laryngitis. No oral airway obstruction noted. No symptoms of sepsis at this time. Patient appears well and is hemodynamically stable. Patient was given for amoxicillin, Tylenol, ProAir is advised to follow-up with primary care doctor in 2-3 days for reevaluation of symptoms. Patient is advised to do salt water gargles. Patient is advised to return to emergency department for worsening symptoms. Disposition: Home. Stable. Disclaimer: Inadvertent spelling and grammatical errors are likely due to EHR/d ictation software use and do not reflect on the overall quality of patient care. Also, please note that the electronic time recorded on this note does not necessarily reflect the actual time of the patient encounter. Departure Diagnosis: Primary Impression: Acute bacterial pharyngitis Condition: Stable Patient Instructions: Pharyngitis, Strep (Presumed) RENATA LEWSI NP Feb 16, 2018 22:46
[2018-02-16 23:08] VITALS: BP 160/90; PULSE 81; RESP 19
== END 2018-02-16 23:11 | disposition home or self-care (01) ==
LOC: FTE 22:15
DX: J02.9 Acute pharyngitis, unspecified (principal); I10 Essential (primary) hypertension
CPT/HCPCS: 99283